=== PATIENT | female | born 1945 | race Caucasian/White ===

== ENCOUNTER → 2016-12-20 | Outpatient (REF) | payer MEDICARE, OTHER | LOC: M LAB REF 13:49 | PROVIDERS: ATTEND Internal Medicine Medical Oncology | DX: C56.9 Malignant neoplasm of unspecified ovary (principal) ==

== ENCOUNTER → 2016-12-30 | Outpatient (REF) | payer MEDICARE, OTHER ==
[2016-12-30 11:44] LABS: MEAN CORPUSCULAR HEMOGLOBIN 35.9 pg (27.0-33.0); MEAN CORPUSCULAR HGB CONC 36.2 g/dl (32.0-36.5); MEAN CORPUSCULAR VOLUME 99.1 fl (80.0-96.0)
[2016-12-30 12:06] LABS: ALBUMIN 3.5 GM/DL (3.2-5.2); ALBUMIN/GLOBULIN RATIO 1.59 (1.00-1.93); ALKALINE PHOSPHATASE 68 U/L (45-117); ALT/SGPT 36 U/L (12-78); ANION GAP 6 MEQ/L (8-16); AST/SGOT 27 U/L (15-37); BILIRUBIN,TOTAL 0.5 MG/DL (0.2-1.0); BLOOD UREA NITROGEN 16 MG/DL (7-18); CALCIUM LEVEL 8.4 MG/DL (8.8-10.2); CARBON DIOXIDE LEVEL 32 MEQ/L (21-32); CHLORIDE LEVEL 89 MEQ/L (98-107); CHOLESTEROL LEVEL 213 MG/DL (<200); CREATININE FOR GFR 0.81 MG/DL (0.55-1.02); FREE T4 1.34 NG/DL (0.76-1.46); GLOMERULAR FILTRATION RATE > 60.0 (>39); GLUCOSE, FASTING 107 MG/DL (83-110); POTASSIUM SERUM 4.5 MEQ/L (3.5-5.1); SODIUM LEVEL 127 MEQ/L (136-145); TOTAL PROTEIN 5.7 GM/DL (6.4-8.2); TRIGLYCERIDES LEVEL 137 MG/DL (<150)
== END ==
LOC: M SFHCCLAY 07:41
PROVIDERS: ATTEND Family Medicine
DX: C56.9 Malignant neoplasm of unspecified ovary (principal); I10 Essential (primary) hypertension; E89.0 Postprocedural hypothyroidism; E78.2 Mixed hyperlipidemia

== ENCOUNTER → 2017-01-01 | Outpatient (REF) | payer MEDICARE, OTHER | LOC: M LAB REF 07:00 | PROVIDERS: ATTEND Internal Medicine Medical Oncology | DX: C56.9 Malignant neoplasm of unspecified ovary (principal) ==

== ENCOUNTER → 2017-01-13 | Outpatient (REF) | payer MEDICARE, OTHER | LOC: M LAB REF 09:05 | PROVIDERS: ATTEND Internal Medicine Medical Oncology | DX: C56.9 Malignant neoplasm of unspecified ovary (principal); E87.1 Hypo-osmolality and hyponatremia ==

== ENCOUNTER → 2017-10-06 | Outpatient (REF) | payer MEDICARE, OTHER ==
[2017-10-06 19:57] LABS: ANION GAP 6 MEQ/L (8-16); BLOOD UREA NITROGEN 20 MG/DL (7-18); CARBON DIOXIDE LEVEL 29 MEQ/L (21-32); CHLORIDE LEVEL 101 MEQ/L (98-107); CREATININE FOR GFR 0.77 MG/DL (0.55-1.30); GLOMERULAR FILTRATION RATE > 60.0 (>39); GLUCOSE, FASTING 106 MG/DL (70-100); MAGNESIUM LEVEL 1.9 MG/DL (1.8-2.4); POTASSIUM SERUM 4.4 MEQ/L (3.5-5.1); SODIUM LEVEL 136 MEQ/L (136-145)
[2017-10-06 20:07] LABS: CREATININE,RANDOM URINE 79.3 MG/DL; TOTAL PROTEIN,RANDOM URINE 63.8 MG/DL (0.0-12.0)
[2017-10-06 20:28] LABS: APPEARANCE, URINE CLEAR (CLEAR); BACTERIA, URINE AUTO NEGATIVE (NEGATIVE); BILIRUBIN, URINE AUTO NEGATIVE (NEGATIVE); BLOOD, URINE BLOOD NEGATIVE (NEGATIVE); COLOR, URINE YELLOW (YELLOW); GLUCOSE, URINE (UA) AUTO NEGATIVE (NEGATIVE); KETONE, URINE AUTO NEGATIVE (NEGATIVE); LEUKOCYTE ESTERASE, URINE AUTO NEGATIVE (NEGATIVE); NITRITE, URINE AUTO NEGATIVE (NEGATIVE); PROTEIN, URINE AUTO 2+ mg/dL (NEGATIVE); RBC, URINE AUTO 0 /HPF (0-3); SPECIFIC GRAVITY URINE AUTO 1.016 (1.002-1.035); SQUAMOUS EPITHELIAL CELL UR AU 1 /HPF (0-6); UROBILINOGEN, URINE AUTO 0.2 mg/dL (0.0-2.0); WBC, URINE AUTO 0 /HPF (0-3)
== END ==
LOC: M LABDRAWC 17:08
DX: R80.9 Proteinuria, unspecified (principal); N18.2 Chronic kidney disease, stage 2 (mild); I12.9 Hypertensive chronic kidney disease with stage 1 through stage 4 chronic kidney disease, or unspecified chronic kidney disease; E87.1 Hypo-osmolality and hyponatremia; R56.9 Unspecified convulsions; E03.9 Hypothyroidism, unspecified; C56.1 Malignant neoplasm of right ovary
CPT/HCPCS: 83735

== ENCOUNTER → 2017-10-11 | Outpatient (REF) | payer MEDICARE, OTHER ==
[2017-10-13 10:40] LABS: CA 125 7.9 U/ML (<30.2)
== END ==
LOC: M LAB REF 15:06
DX: C56.9 Malignant neoplasm of unspecified ovary (principal)
CPT/HCPCS: 86304

== ENCOUNTER → 2018-01-02 | Outpatient (REF) | payer MEDICARE, OTHER ==
[2018-01-02 12:15] LABS: FREE T4 0.79 NG/DL (0.76-1.46)
== END ==
LOC: M SFHCCLAY 07:50
DX: E89.0 Postprocedural hypothyroidism (principal)
CPT/HCPCS: 84443

== ENCOUNTER → 2018-10-17 | Outpatient (CLI) | payer MEDICARE, OTHER ==
[~2018-10-17] MED LIST: ASPI81TA26 PO; BYST20TA2 PO; CALC-190 PO; CARB200T98 PO; CO Q200C10 PO; CRES10TA PO; ESTR1TAB3 PO; FURO20TA2 PO; LEVO150T7 PO; LORA0.5T11 PO; LOSA50TA88 PO; MAGN1TAB26 PO; NEXI40CA PO; ONDA8TAB7 PO; SODI1TAB12 PO; STOO100C PO; ZYRTTAB8 PO
--- NOTE | 2018-10-20 07:39 | ECHO ---
DATE OF PROCEDURE: 10/17/2018 REFERRING PROVIDER: Superior rectus. [place] PATIENT LOCATION: Outpatient. REASON FOR ECHOCARDIOGRAM: Chemotherapy drug monitoring. 2D MEASUREMENTS: IVS 1.2 cm LV 4.2 cm LVPW 1.0 cm LA 3.2 cm Aorta 3.0 cm IVC 1.5 cm DOPPLER MEASUREMENT: Peak velocity across the aortic valve 0.94 m/s Peak velocity across the LVOT 0.84 m/s Mitral E 0.72, Mitral A 0.88 with a ratio of 0.8 Maximum tricuspid valve velocity 2.4 m/s 2D COMMENTS: 1. Normal left ventricular size, wall thickness and normal global left ventricular systolic function. The estimated left ventricular systolic ejection fraction is 60-65%. Sigmoid venous of the basal ventricular system was noted. 2. Normal left atrium. Normal right atrium and left ventricle. 3. The atrial septum appeared to be normal without evidence of defect or shunt. 4. Normal aortic root. 5. No pericardial effusion seen. 6. Mildly calcified aortic valve with normal leaflet excursion. Mildly calcified mitral annulus, mild mitral wall leaflet motion. Normal tricuspid valve and pulmonic valve. The proximal pulmonary artery branches were not well visualized. The inferior vena cava was normal in size. Central venous pressure is most likely normal. Doppler detects trace to mild mitral regurgitation, trace to mild tricuspid regurgitation, trace pulmonic regurgitation. The calculated pulmonary artery systolic pressure was between 30-40 mmHg. Abnormal relaxation pattern was noted across the mitral valve leaflet. Mitral valve leaflets as well as the mitral valve annulus consistent with features of grade 1 left ventricular diastolic dysfunction. IMPRESSION: 1. Normal global left ventricular systolic and diastolic function. There are some features of left ventricular diastolic dysfunction manifested by abnormal relaxation. 2. Aortic valve sclerosis without stenosis or aortic regurgitation. 3. Mitral annulus calcification with trace to mild mitral regurgitation. 4. Trace to mild tricuspid regurgitation with mild pulmonary hypertension with probably mild to moderate hypertension. 5. Sigmoid venous of the basal ventricular system was noted, a benign finding.
== END ==
LOC: M CARPUL 11:44
PROVIDERS: ATTEND Internal Medicine Hematology & Oncology
DX: I35.0 Nonrheumatic aortic (valve) stenosis (principal); I34.8 Other nonrheumatic mitral valve disorders; I27.0 Primary pulmonary hypertension; C56.9 Malignant neoplasm of unspecified ovary

== ENCOUNTER 2018-10-26 14:32 | Observation (INO) | payer MEDICARE, OTHER ==
[~2018-10-26] VITALS: Ht 165.1 cm; Wt 72.6 kg
[2018-10-26] MEDS ORDERED: ZYRTTAB8 PO (14:45)
[2018-10-26 15:09] LABS: BASO % 0.4 % (0.0-1.0); EOS % 0.4 % (0.0-3.0); HEMOGLOBIN 14.4 g/dl (12.0-15.5); LYMPH # 0.5 10^3/uL (1.5-4.5); LYMPH % 6.4 % (24.0-44.0); MEAN CORPUSCULAR HEMOGLOBIN 32.7 pg (27.0-33.0); MEAN CORPUSCULAR HGB CONC 34.3 g/dl (32.0-36.5); MEAN CORPUSCULAR VOLUME 95.5 fl (80.0-96.0); MONO % 12.6 % (0.0-5.0); NEUTROPHILS # 6.4 10^3/uL (1.8-7.7); NEUTROPHILS % 79.8 % (36.0-66.0); PLATELET COUNT, AUTOMATED 226 10^3/uL (150-450)
[2018-10-26 15:11] LABS: VENOUS BASE EXCESS 2.5 (-2.0-2.0); VENOUS HCO3 28.2 MEQ/L (23.0-27.0); VENOUS O2 SATURATION 83.7 % (60.0-80.0); VENOUS PARTIAL PRESSURE CO2 47.4 mmHg (38.0-50.0); VENOUS PARTIAL PRESSURE O2 52.2 mmHg (30.0-50.0); VENOUS PH 7.392 UNITS (7.330-7.430); VENOUS STANDARD HCO3 26.3 MEQ/L; VENOUS TOTAL CO2 29.6 MEQ/L (24.0-28.0)
[2018-10-26] MEDS ORDERED: NS 1,000 ML IV ONE ×2 (15:30→17:15)
[2018-10-26 15:42] LABS: BLOOD UREA NITROGEN 17 MG/DL (7-18); CALCIUM LEVEL 9.1 MG/DL (8.8-10.2); CARBON DIOXIDE LEVEL 28 MEQ/L (21-32); CHLORIDE LEVEL 94 MEQ/L (98-107); CK-MB VALUE MASS < 1.0 NG/ML (<3.6); CPK CREATINE PHOSPHOKINASE 35 U/L (26-192); CREATININE FOR GFR 0.75 MG/DL (0.55-1.30); FREE T4 1.12 NG/DL (0.76-1.46); GLOMERULAR FILTRATION RATE > 60.0 (>39); GLUCOSE, FASTING 127 MG/DL (70-100); MAGNESIUM LEVEL 2.1 MG/DL (1.8-2.4); MB/CK RELATIVE INDEX 2.86 (< OR =4); SODIUM LEVEL 131 MEQ/L (136-145); THYROID STIMULATING HORMONE 0.432 uIU/ML (0.358-3.740); TROPONIN I < 0.02 NG/ML (< 0.10)
[2018-10-26 15:47] LABS: INR 0.92; PROTHROMBIN TIME 12.1 SECONDS (11.8-14.0)
[2018-10-26 15:48] LABS: PARTIAL THROMBOPLASTIN TIME 36.1 SECONDS (25.0-38.4)
--- NOTE | 2018-10-26 16:45 | REP ---
Portable chest, 04:04 p.m., single AP view, the patient semi upright: There are no comparison chest studies. There are no infiltrates. There are no pleural effusions. There are two small nodular densities inferiorly in the right lung of uncertain significance in the absence of comparison studies to document stability. Consider CT for further evaluation of these nodules. There is a right IJ Jifola-N-Mnog with the tip in the superior vena cava in satisfactory position. Cardiac size is normal. The liz, mediastinum, and skeletal structures are unremarkable. Impression: There are no acute cardiopulmonary findings. There is a right IJ Gmmney-G-Wyvb catheter. There are too small nodules inferiorly in the right lung of uncertain significance in the absence of comparison studies to document stability. Consider follow-up CT for further evaluation of these nodules. Electronically Signed by Fran Whiteside MD 10/26/2018 04:36 P
--- NOTE | 2018-10-26 19:06 | HPEPDOC ---
General Date of Admission Date of Service: Oct 26, 2018 Chief Complaint The patient is a 73-year-old female admitted with a reason for visit of Syncopal Episode. History of Present Illness 73 yo F with a history of ovarian cancer, SIADH, complex partial seizure on carbamazapine with the last seizure 4 years ago, HLD, and hypothyroidism, presented to the ED after she had a syncopal episode. This morning, she did not feel well, and she had to go to the bathroom for BM. At that point, there was no stool, but she only passed gas. However, she felt dizzy and weak, and while she was getting out of the bathroom, she passed out. Her witnessed it, and she lost consciousness for 30 sec. The patient did not have a seizure, no shaking, or post-ictal fatigue. The patient denies chest pain, palpitation, or shortness of breath, or any other symptoms except for dizziness, before the syncopal episode. After she was brought in to the ED, she had a few episodes of large watery diarrhea witnessed in the ED. Of note, the patient has a history of ovarian cancer, s/p neoadjuvant carbo/taxol, followed by debulking surgery 2 years ago, followed by adjuvant chemotherapy with carbo/taxol. She was found to have disease recurrence, and she received doxil and carboplatin 3 days ago. She had nausea and fatigue the next day of chemotherapy. She was also diagnosed with SIADH, and he was taking salt tab prescribed by her doctor. In the ED, she received 2 L NS, and she is admitted for further medical treatment. Home Medications Scheduled Aspirin (Aspirin EC) 81 Mg Tab, 1 TAB PO DAILY for pain, (Reported) Calcium Carbonate/Vitamin D3 (Calcium 1,000 + D3 Caplet) 1 Tab Tab, 1 TAB PO DAILY, (Reported) Carbamazepine (Carbamazepine ER) 200 Mg [place], 600 MG PO BID, (Reported) Cetirizine HCl/Pseudoephedrine (Zyrtec-D Tablet) 1 Each Tab.er.12h, 1 TAB PO BID for allergy symptoms, (Reported) Esomeprazole Magnesium (Nexium) 40 Mg Cap, 1 CAP PO DAILY, (Reported) Furosemide (Furosemide) 20 Mg Tab, 1 TAB PO DAILY, (Reported) Levothyroxine Sodium (Levothyroxine Sodium) 150 Mcg Tab, 1 TAB PO DAILY, (Reported) Magnesium Oxide (Magnesium Oxide) 400 Mg Tab, 1 TAB PO DAILY for constipation, (Reported) Rosuvastatin Calcium (Crestor) 10 Mg Tab, 1 TAB PO DAILY, (Reported) Sodium Chloride (Sodium Chloride) 1 Gm Tablet, 2 GRAM PO DAILY, (Reported) Ubidecarenone (Co Q-10) 200 Mg Cap, 100 MG PO TID, (Reported) Scheduled PRN Lorazepam (Lorazepam) 0.5 Mg Tablet, 1 TAB PO Q6HP PRN for NAUSEA Ondansetron HCl (Ondansetron HCl) 8 Mg Tablet, 8 MG PO Q6HP PRN for NAUSEA OR VOMITING Allergies Coded Allergies: No Known Allergies (Unverified , 12/18/08) Past Medical History Medical History See above Surgical History Hysterectomy Family History Mother breast cancer Father esophageal cancer Social History * Smoker: Denies Alcohol: Denies see above A-FIB/CHADSVASC A-FIB History Current/History of A-Fib/PAF?: No Review of Systems Constitutional: Reports: Weakness, Fatigue Eyes: Denies: Pain, Vision change, Conjunctivae inflammation, Eyelid inflammation, Redness, Other ENT: Denies: Head Aches, Ear Pain, Dysphagia, Sinus Congestion, Post Nasal Drip, Sore Throat, Epistaxis, Other Symptoms Skin: Denies: Rash, Lesions, Jaundice, Bruising, Itching, Dry, Breakdown, Nail Changes, Other Pulmonary: Denies: Dyspnea, Cough, Pleuritic Chest Pain, Other Symptoms Cardiovascular: Reports: Lt Headedness Gastrointestinal: Reports: Nausea, Vomiting, Diarrhea Genitourinary: Denies: Dysuria, Frequency, Incontinence, Hematuria, Retention, Other Symptoms Hematologic: Denies: Bruising, Bleeding Excessively, Petecchia, Purpura, Enlarged Lymph Nodes, Other Hematologic Endocrine: Denies: Polydipsia, Polyphagia, Polyuria, Heat Intolerance, Cold Intolerance, Other Endocrine Sx Musculoskeletal: Denies: Neck Pain, Back Pain, Shoulder Pain, Arm Pain, Hand Pain, Leg Pain, Foot Pain, Joint Pain, Muscle Pain, Spasms, Other Symptoms Neurological: Denies: Weakness, Numbness, Incoordination, Change in speech, Confusion, Seizures, Other Symptoms Psych: Denies: Mood Normal, Anxiety, Depression, Memory Issues, Thoughts of Self Harm, Anger, Thoughts of Harming Other, Other Psych Physical Examination General Exam: Positive: Alert, Cooperative, No Acute Distress Eye Exam: Positive: Conjunctiva & lids normal ENT Exam: Positive: Atraumatic Neck Exam: Positive: Supple Chest Exam: Positive: Clear to auscultation Heart Exam: Positive: Rate Normal Telemetry: Positive: No significant arrhythmia Abdomen Exam: Positive: Normal bowel sounds Extremity Exam: Positive: Other (no edema) Skin Exam: Positive: Nl turgor and temperature Neuro Exam: Positive: Normal Speech Psych Exam: Positive: Mood NL Vital Signs Vital Signs Date Time Temp Pulse Resp B/P (MAP) Pulse Ox O2 Delivery O2 Flow Rate FiO2 10/26/18 17:17 73 93 10/26/18 17:15 141/74 (96) 10/26/18 14:57 95.3 16 Room Air Laboratory Data Labs 24H Laboratory Tests 2 10/26/18 15:01: Immature Granulocyte % (Auto) 0.4, White Blood Count 8.0, Red Blood Count 4.40, Hemoglobin 14.4, Hematocrit 42.0, Mean Corpuscular Volume 95.5, Mean Corpuscular Hemoglobin 32.7, Mean Corpuscular Hemoglobin Concent 34.3, Red Cell Distribution Width 11.7, Platelet Count 226, Neutrophils (%) (Auto) 79.8H, Lymphocytes (%) (Auto) 6.4L, Monocytes (%) (Auto) 12.6H, Eosinophils (%) (Auto) 0.4, Basophils (%) (Auto) 0.4, Neutrophils # (Auto) 6.4, Lymphocytes # (Auto) 0.5L, Monocytes # (Auto) 1.0H, Eosinophils # (Auto) 0.0, Basophils # (Auto) 0.0, Nucleated Red Blood Cells % (auto) 0.0, Prothrombin Time 12.1, Prothromb Time International Ratio 0.92, Activated Partial Thromboplast Time 36.1, Blood Gas Bicarbonate Standard 26.3, Venous Blood pH 7.392, Venous Blood Partial Pressure CO2 47.4, Venous Blood Partial Pressure O2 52.2H, Venous Blood Total Carbon Dioxide 29.6H, Venous Blood HCO3 28.2H, Venous Blood Oxygen Saturation 83.7H, Venous Blood Base Excess 2.5H, Anion Gap 9, Glomerular Filtration Rate > 60.0, Lactic Acid Level 1.6, Blood Urea Nitrogen 17, Creatinine 0.75, Sodium Level 131L, Potassium Level 4.0, Chloride Level 94L, Carbon Dioxide Level 28, Calcium Level 9.1, Total Creatine Kinase 35, Magnesium Level 2.1, Creatine Kinase MB < 1.0, Creatine Kinase MB Relative Index 2.86, Troponin I < 0.02, Thyroid Stimulating Hormone (TSH) 0.432, Free Thyroxine 1.12 10/26/18 15:07: POC Glucose (Misc Panel) 132H, POC Sodium (Misc Panel) 130L, POC Potassium (Misc Panel) 3.6, POC Chloride (Misc Panel) 91L, POC Total CO2 (Misc Panel) 27.0, POC Blood Urea Nitrogen (Misc Panel 17, POC Ionized Calcium (Misc Panel) 4.7, POC Creatinine (Misc Panel) 0.6, POC Hematocrit (Misc Panel) 42.0 CBC/BMP Laboratory Tests 10/26/18 15:01 Red Blood Count 4.40, Mean Corpuscular Volume 95.5, Mean Corpuscular Hemoglobin 32.7, Mean Corpuscular Hemoglobin Concent 34.3, Red Cell Distribution Width 1 1.7, Neutrophils (%) (Auto) 79.8 H, Lymphocytes (%) (Auto) 6.4 L, Monocytes (%) (Auto) 12.6 H, Eosinophils (%) (Auto) 0.4, Basophils (%) (Auto) 0.4, Neutrophils # (Auto) 6.4, Lymphocytes # (Auto) 0.5 L, Monocytes # (Auto) 1.0 H, Eosinophils # (Auto) 0.0, Basophils # (Auto) 0.0, Calcium Level 9.1, Total Creatine Kinase 35 Microbiology Microbiology 10/26/18 Gastrointestinal Tract Panel (PCR) - Final, Complete Problems (1) Syncope and collapse Problem Text: 73 yo F with ovarian cancer, SIADH, complex partial seizure on carbamazapine with the last seizure 4 years ago, HLD, and hypothyroidism, pres ented to the ED for syncopal episode. # Syncope - Etiology not clear. Although she had large diarrhea after she syncopized, syncope seems to be volume loss, hypovolemia from diarrhea. She had chemot herapy, especially doxil, whose well known side effect is GI system upset including diarrhea. Sycopal episode was witnessed by the patient's , and it does not seem to be a seizure. - She received 2 L NS, although she has a history of SIADH. Currently, blood pressure is stable. Will hold off IV hydration and check CMP to follow electrolytes, kidney function, and liver function. - Telemetry monitoring - Will send trop. # HLD, hypothyroidism - Continue aspirin and crestor - Continue levothyroxine 150 # Complex partial seizure - Continue carbamazapine 600 ER BID # DVT ppx - Lovenox # Ovarian cancer - Follow her oncologist as an outpatient Plan / VTE VTE Prophylaxis Ordered?: Yes (lovenox) MARQUITA GUTIERREZ MD Oct 26, 2018 19:06
[2018-10-26] MEDS ORDERED: LORA0.5T11 PO (19:52)
[2018-10-26] MEDS ORDERED: CALC600T66 PO (19:52)
[2018-10-26] MEDS ORDERED: CARB400T4 PO (19:52)
[2018-10-26] MEDS ORDERED: ONDA-196 PO (19:52)
[2018-10-26] MEDS ORDERED: CETI-113 PO (19:52)
[2018-10-26] MEDS ORDERED: CALC600T60 PO (19:57)
[2018-10-26] MEDS ORDERED: FLON1SPR NARES (19:57)
[2018-10-26] MEDS ORDERED: GALZ25CA PO (19:57)
[2018-10-26] MEDS ORDERED: ACET-897 PO (19:57)
[2018-10-26 20:07] LABS: ALBUMIN 2.9 GM/DL (3.2-5.2); ALT/SGPT 23 U/L (12-78); BILIRUBIN,TOTAL 0.4 MG/DL (0.2-1.0); BLOOD UREA NITROGEN 14 MG/DL (7-18); CARBON DIOXIDE LEVEL 28 MEQ/L (21-32); CHLORIDE LEVEL 99 MEQ/L (98-107); CREATININE FOR GFR 0.66 MG/DL (0.55-1.30); GLOMERULAR FILTRATION RATE > 60.0 (>39); GLUCOSE, FASTING 126 MG/DL (70-100); POTASSIUM SERUM 3.9 MEQ/L (3.5-5.1); SODIUM LEVEL 135 MEQ/L (136-145); TOTAL PROTEIN 5.8 GM/DL (6.4-8.2); TROPONIN I < 0.02 NG/ML (< 0.10)
[2018-10-26 20:50] VITALS: BP 158/85
[2018-10-26] MEDS: carBAMazepine XR 200 MG TAB PO SCH (21:46)
[2018-10-27 05:54] LABS: HEMATOCRIT 35.8 % (36.0-47.0); HEMOGLOBIN 12.5 g/dl (12.0-15.5); MEAN CORPUSCULAR HEMOGLOBIN 32.9 pg (27.0-33.0); MEAN CORPUSCULAR HGB CONC 34.9 g/dl (32.0-36.5); MEAN CORPUSCULAR VOLUME 94.2 fl (80.0-96.0); PLATELET COUNT, AUTOMATED 196 10^3/uL (150-450); WHITE BLOOD COUNT 6.9 10^3/uL (4.0-10.0)
[2018-10-27 06:00] VITALS: BP 129/64
[2018-10-27] MEDS ORDERED: LEVOTHYROXINE 150MCG TABLET (0.15MG) PO SCH (06:00)
[2018-10-27 06:26] LABS: ALBUMIN 2.8 GM/DL (3.2-5.2); ALT/SGPT 21 U/L (12-78); BILIRUBIN,TOTAL 0.4 MG/DL (0.2-1.0); BLOOD UREA NITROGEN 11 MG/DL (7-18); CALCIUM LEVEL 8.3 MG/DL (8.8-10.2); CARBON DIOXIDE LEVEL 27 MEQ/L (21-32); CHLORIDE LEVEL 98 MEQ/L (98-107); CREATININE FOR GFR 0.54 MG/DL (0.55-1.30); GLOMERULAR FILTRATION RATE > 60.0 (>39); GLUCOSE, FASTING 106 MG/DL (70-100); MAGNESIUM LEVEL 1.7 MG/DL (1.8-2.4); POTASSIUM SERUM 3.7 MEQ/L (3.5-5.1); SODIUM LEVEL 131 MEQ/L (136-145); TOTAL PROTEIN 5.8 GM/DL (6.4-8.2)
[2018-10-27] MEDS ORDERED: PANTOPRAZOLE 40MG TAB (PROTONIX) PO SCH (09:00)
[2018-10-27] MEDS ORDERED: ROSUVASTATIN 10 MG TAB (CRESTOR) PO SCH (09:00)
[2018-10-27] MEDS ORDERED: CETIRIZINE (ZyrTEC) 10 MG TAB PO SCH (09:00)
[2018-10-27] MEDS ORDERED: ASPIRIN 325 MG TAB PO SCH (09:00)
[2018-10-27] MEDS ORDERED: ENOXAPARIN 40 MG/0.4 ML SYRINGE (J1650) SC SCH (09:00)
[2018-10-27] MEDS: carBAMazepine XR 200 MG TAB PO SCH (09:18)
[2018-10-27] MEDS ORDERED: ASPIRIN 81 MG ENTERIC TAB PO SCH (10:00)
[2018-10-27 14:00] VITALS: BP 137/95
--- NOTE | 2018-10-28 06:42 | ECGEPIP ---
[facility] - ED Test Date: 2018-10-26 Pat Name: J LUIS VILLARREAL Department: Room: - Gender: Female [employer]: pmo : [id number] Requested By: ZACK Ramirez Order Number: [id number] Reading MD: Raymon Hall Measurements Intervals [place] Rate: 66 P: 44 ID: [id number] QRS: 43 QRSD: 105 T: 46 QT: 428 QTc: 451 Interpretive Statements SINUS RHYTHM NO PRIORS FOR COMPARISON Electronically Signed on 10-28-2018 6:42:14 EDT by Raymon Hall
== END 2018-10-27 14:40 | disposition home or self-care (01) ==
LOC: M ED 14:32 → M ED INP 18:35 → M MSPAV 20:50
PROVIDERS: ADMIT Internal Medicine; ATTEND Family Medicine
DX: R55 Syncope and collapse (principal); E22.2 Syndrome of inappropriate secretion of antidiuretic hormone; C56.9 Malignant neoplasm of unspecified ovary; E78.49 Other hyperlipidemia; E03.9 Hypothyroidism, unspecified; Z79.82 Long term (current) use of aspirin; Z79.899 Other long term (current) drug therapy
CPT/HCPCS: 36415; 71045; 80047; 80053; 82550; 82553; 82803; 83605; 83735; 84439; 84443; 84484; 85025; 85027; 85610; 85730; 87507; 93005; 93041; 96360; 96361; 97161; 99285; G0378

== ENCOUNTER → 2019-01-03 | Outpatient (REF) | payer MEDICARE, OTHER ==
[~2019-01-03] MED LIST changes: +ACET-897 PO; +CALC600T60 PO; +CALC600T66 PO; +CARB400T4 PO; +CETI-113 PO; +DEME150T2 PO; +FLON1SPR NARES; +GALZ25CA PO; +MM S100C PO; +ONDA-196 PO; +PROM25TA12 PO; -STOO100C PO
[2019-01-03 14:18] LABS: ALBUMIN 3.7 GM/DL (3.2-5.2); ALT/SGPT 39 U/L (12-78); BILIRUBIN,TOTAL 0.2 MG/DL (0.2-1.0); BLOOD UREA NITROGEN 16 MG/DL (7-18); CALCIUM LEVEL 8.9 MG/DL (8.8-10.2); CARBON DIOXIDE LEVEL 25 MEQ/L (21-32); CHLORIDE LEVEL 101 MEQ/L (98-107); CHOLESTEROL LEVEL 160 MG/DL (<200); CHOLESTEROL RISK RATIO 2.807 (<5); CREATININE FOR GFR 0.67 MG/DL (0.55-1.30); FREE T4 0.76 NG/DL (0.76-1.46); GLOMERULAR FILTRATION RATE > 60.0 (>39); GLUCOSE, FASTING 107 MG/DL (70-100); HDL CHOLESTEROL 57 MG/DL (>40); LDL CHOLESTEROL 71 MG/DL (<100); NON-HDL-C 103 MG/DL; POTASSIUM SERUM 4.4 MEQ/L (3.5-5.1); SODIUM LEVEL 136 MEQ/L (136-145); TOTAL PROTEIN 6.2 GM/DL (6.4-8.2); TRIGLYCERIDES LEVEL 159 MG/DL (<150)
== END ==
LOC: M SFHCCLAY 07:45
PROVIDERS: ATTEND Family Medicine
DX: E89.0 Postprocedural hypothyroidism (principal); E78.2 Mixed hyperlipidemia

== ENCOUNTER → 2019-11-26 | Outpatient (REF) | payer MEDICARE, OTHER ==
[~2019-11-26] MED LIST changes: -DEME150T2 PO; +DEME1TAB2 PO; -LORA0.5T11 PO; +LORA0.5T5 PO; +ONDA8TAB10 PO; -ONDA8TAB7 PO
[2019-11-26 16:02] LABS: BASO % 0.6 % (0.0-1.0); EOS # 0.1 10^3/uL (0.0-0.5); HEMOGLOBIN 12.8 g/dl (12.0-15.5); LYMPH # 0.7 10^3/uL (1.5-5.0); LYMPH % 21.4 % (24.0-44.0); MEAN CORPUSCULAR HEMOGLOBIN 36.9 pg (27.0-33.0); MEAN CORPUSCULAR HGB CONC 33.7 g/dl (32.0-36.5); MEAN CORPUSCULAR VOLUME 109.5 fl (80.0-96.0); MONO # 0.7 10^3/uL (0.0-0.8); MONO % 18.8 % (0.0-5.0); NEUTROPHILS % 56.9 % (36.0-66.0); PLATELET COUNT, AUTOMATED 179 10^3/uL (150-450); RED BLOOD COUNT 3.47 10^6/uL (4.00-5.40); WHITE BLOOD COUNT 3.5 10^3/uL (4.0-10.0)
[2019-11-26 16:14] LABS: ALBUMIN 4.2 GM/DL (3.2-5.2); ALT/SGPT 56 U/L (12-78); BILIRUBIN,TOTAL 0.5 MG/DL (0.2-1.0); BLOOD UREA NITROGEN 17 MG/DL (7-18); CALCIUM LEVEL 8.7 MG/DL (8.8-10.2); CARBON DIOXIDE LEVEL 32 MEQ/L (21-32); CHLORIDE LEVEL 102 MEQ/L (98-107); CHOLESTEROL LEVEL 195 MG/DL (<200); CHOLESTEROL RISK RATIO 2.437 (<5); CREATININE FOR GFR 0.88 MG/DL (0.55-1.30); GLOMERULAR FILTRATION RATE > 60.0 (>39); GLUCOSE, FASTING 107 MG/DL (70-100); HDL CHOLESTEROL 80 MG/DL (>40); LDL CHOLESTEROL 87 MG/DL (<100); NON-HDL-C 115 MG/DL; POTASSIUM SERUM 4.4 MEQ/L (3.5-5.1); SODIUM LEVEL 135 MEQ/L (136-145); THYROID STIMULATING HORMONE 0.101 uIU/ML (0.358-3.740); TOTAL PROTEIN 6.8 GM/DL (6.4-8.2); TRIGLYCERIDES LEVEL 142 MG/DL (<150)
== END ==
LOC: M SFHCCLAY 10:35
PROVIDERS: ATTEND Family Medicine
DX: G90.9 Disorder of the autonomic nervous system, unspecified (principal); K21.9 Gastro-esophageal reflux disease without esophagitis; E78.2 Mixed hyperlipidemia; Z85.43 Personal history of malignant neoplasm of ovary
CPT/HCPCS: 80053; 80061; 84443; 85025; G0463